=== PATIENT | male | born 1960 | race Caucasian/White ===

== ENCOUNTER 2022-01-27 07:14 | Day surgery (SDC) | payer MEDICAID ==
[~2022-01-27] VITALS: Ht 167.6 cm; Wt 90.7 kg
[2022-01-27] MEDS ORDERED: SODIUM CHLORIDE 0.9% 1,000 ML IV SCH (09:00)
[2022-01-27] MEDS ORDERED: METF-874 MT (09:31)
[2022-01-27] MEDS ORDERED: GLIM4TAB36 PO (09:32)
[2022-01-27] MEDS ORDERED: METF-874 PO (09:32)
[2022-01-27] MEDS ORDERED: ATOR10TA69 PO (09:32)
[2022-01-27] MEDS ORDERED: FENTANYL CITRATE/PF 50MCG/ML 2ML VIAL ONE ×2 (11:23→13:06)
[2022-01-27] MEDS ORDERED: ROCURONIUM BROMIDE 10MG/ML VIAL 5ML IV ONE (11:23)
[2022-01-27] MEDS ORDERED: MIDAZOLAM HCL 2 MG/2 ML VIAL ONE (11:23)
[2022-01-27] MEDS ORDERED: PROPOFOL 200MG/20ML VIAL IV ONE (11:23)
[2022-01-27] MEDS ORDERED: SKIN ADHESIVE 0.7 GM EA TOP ONE (12:24)
[2022-01-27] MEDS ORDERED: BUPIVACAINE HCL/PF 0.5% (5MG/ML) 10ML ONE ×2 (12:25)
[2022-01-27] MEDS ORDERED: ONDANSETRON HCL 4MG/2ML INJ ONE (13:07)
[2022-01-27] MEDS ORDERED: CEFAZOLIN SODIUM 1000MG/VIAL ONE ×2 (13:07)
[2022-01-27] MEDS ORDERED: DEXAMETHASONE 4MG/ML 1ML VIAL ONE (13:07)
[2022-01-27] MEDS ORDERED: KETOROLAC 30MG/ML VIAL ONE (13:07)
[2022-01-27] MEDS ORDERED: HYDROCODONE/ACETAMINOPHEN 5/325MG TABLET PO NR (15:00)
== END 2022-01-27 16:30 | disposition home or self-care (01) ==
LOC: OR 07:14
PROVIDERS: ATTEND Surgery
DX: L05.91 Pilonidal cyst without abscess (principal); D21.6 Benign neoplasm of connective and other soft tissue of trunk, unspecified; E11.9 Type 2 diabetes mellitus without complications; E78.00 Pure hypercholesterolemia, unspecified; Z79.84 Long term (current) use of oral hypoglycemic drugs; Z79.899 Other long term (current) drug therapy; Z98.890 Other specified postprocedural states; Z20.822 Contact with and (suspected) exposure to COVID-19
CPT/HCPCS: 11770; 21931; 82962; 87426; 88304; C9803; J0690; J1100; J1885; J2250; J2405; J2704; J3010; J3490